=== PATIENT | male | born 1970 | race Caucasian/White ===

== ENCOUNTER 2016-10-19 08:27 | Outpatient (CLI) | payer BC ==
[2016-02-02 20:46] VITALS: BP 122/74
[2016-10-19 09:20] LABS: eGFR (African) > 60; eGFR (Non-African) > 60
== END 2016-10-19 08:30 ==
LOC: LAB 08:27
PROVIDERS: ATTEND Family Medicine
DX: E78.2 Mixed hyperlipidemia (principal)
CPT/HCPCS: 36415; 80053; 80061

== ENCOUNTER 2016-12-14 23:44 | Emergency (ER) | payer BC, OTHER ==
[2016-12-15] MEDS ORDERED: KETOROLAC TROMETHAMINE 60 MG/2 ML VIAL IM ONE (00:10)
[2016-12-15] MEDS ORDERED: NALBUPHINE HCL 10 MG/1 ML IM ONE (00:10)
[2016-12-15] MEDS ORDERED: ORPHENADRINE CITRATE 60 MG/2ML IM ONE (00:10)
--- NOTE | 2016-12-15 00:19 | ED Physician Documentation ---
General Adult - HISTORIAN Historian: patient - HPI Chief Complaint: General Adult Onset: hours Timing: worse Further Comments: yes (46 year old male presents with neck, chest wall and left shoulder pain; worse with movement, cough or palpation. Patient concerned it was his heart. Patient reports infected wound on abdmen from skin tag removal.) - ROS CONST: no problems EYES/ENT: none CVS/RESP: none GI/: none MS/SKIN/LYMPH: neck pain NEURO/PSYCH: denies: headache, fainting, dizziness - PAST HX Past History: hypertension, other (HLD) Allergies/Adverse Reactions: Allergies Allergy/AdvReac Type Severity Reaction Status Date / Time Penicillins Allergy Verified 10/16/12 08:38 Home Medications: Ambulatory Orders Medication Instructions Recorded Simvastatin [Zocor] 40 mg PO DAILY 02/02/16 - SOCIAL HX Smoking History: non-smoker - FAMILY HX Family History: No - VITAL SIGNS Vital Signs: Vital Signs Temp Pulse Resp BP Pulse Ox 122/74 02/02/16 20:27 - REVIEWED ASSESSMENTS Nursing Assessment Reviewed: Yes Vitals Reviewed: Yes Progress - Progress Progress: wound cleaned, culture obtained - dressing applied by nursing. Medicated for pain with nubain, toradol and norflex in ER. ED Results Lab/Radiology - Orders Orders: ED Orders Category Date Time Status Apply/change dressing NOW Care 12/15/16 00:10 Active WOUND CULTURE Stat Lab 12/15/16 Ordered Ketorolac Tromethamine [Toradol] Med 12/15/16 00:10 Discontinued 60 mg IM NOW ONE Nalbuphine HCl [Nubain] Med 12/15/16 00:10 Discontinued 10 mg IM NOW ONE Orphenadrine Citrate [Norflex] Med 12/15/16 00:10 Discontinued 60 mg IM NOW ONE General Adult Physical Exam - PHYSICAL EXAM GENERAL APPEARANCE: mild distress EENT: eye inspection normal, NOEMÍ NECK: normal inspection, other (left lateral pain with palpation over sternocliedomastoid muscle) RESPIRATORY: no resp distress, breath sounds normal, other (left anterior chest wall tenderness with palpation) CVS: reg rate & rhythm, heart sounds normal, equal pulses, no murmur, no gallop , PMI nml, no JVD, no friction rub, 24 ABDOMEN: soft, no organomegaly, normal bowel sounds, no abdominal bruit, no distension, other (right lateral abdomen with 1cm round wound with purulent drainage; wound culture obtained. ) SKIN: normal color, warm/dry, NR, INT, PAL, DR EXTREMITIES: non-tender, normal range of motion, no evidence of injury, no edema , other (right shoulder pain with movement) NEURO: oriented X3, CN's nml as tested, motor nml, sensation nml, mood/affect nml Discharge Clincal Impression: Cervical strain, acute Qualifiers: Encounter type: initial encounter Qualified Code(s): S16.1XXA - Strain of muscle, fascia and tendon at neck level, initial encounter Wound, open, abdominal wall, anterior Qualifiers: Encounter type: initial encounter Qualified Code(s): S31.109A - Unspecified open wound of abdominal wall, unspecified quadrant without penetration into peritoneal cavity, initial encounter Additional Instructions: Diagnosis: Infected wound on abdomen Cervical neck strain/muscle spasms Wound care: Clean the wound twice a day with hibiclens and rinse with water clean away any scabbed area Apply thin coat of antibiotic ointment after cleaning the wound. Cover with non-adherent bandage during the day, may leave open to air at night NO hydrogen peroxide Home Medications: Ambulatory Orders Simvastatin [Zocor] 40 mg PO DAILY 02/02/16 Comments: Diagnosis: Infected wound on abdomen Cervical neck strain/muscle spasms Wound care: Clean the wound twice a day with hibiclens and rinse with water clean away any scabbed area Apply thin coat of antibiotic ointment after cleaning the wound. Cover with non-adherent bandage during the day, may leave open to air at night NO hydrogen peroxide Rx: Toradol, bactrim DS, baclofen and ultram - see scanned documents. Condition: Stable Decision to Admit: NO Decision Time: 00:18
[2016-12-15 01:04] VITALS: BP 131/80
== END 2016-12-15 00:40 | disposition home or self-care (01) ==
LOC: ED 23:44
DX: S16.1XXA Strain of muscle, fascia and tendon at neck level, initial encounter (principal); S31.109A Unspecified open wound of abdominal wall, unspecified quadrant without penetration into peritoneal cavity, initial encounter; X58.XXXA Exposure to other specified factors, initial encounter; Y93.9 Activity, unspecified; Y99.9 Unspecified external cause status
CPT/HCPCS: 87070; 96372; 99283; J1885; J2300; J2360

== ENCOUNTER 2018-08-04 11:27 | Outpatient (CLI) | payer OTHER ==
[2018-07-31 17:39] VITALS: BP 133/75
== END 2018-08-04 11:30 ==
LOC: LAB 11:27
PROVIDERS: ATTEND Internal Medicine
DX: Z79.01 Long term (current) use of anticoagulants (principal)
CPT/HCPCS: 36415; 85610

== ENCOUNTER 2018-08-06 09:46 | Outpatient (CLI) | payer OTHER ==
[2018-07-31 17:39] VITALS: BP 133/75
== END 2018-08-06 09:48 ==
LOC: LAB 09:46
PROVIDERS: ATTEND Family Medicine
DX: I82.409 Acute embolism and thrombosis of unspecified deep veins of unspecified lower extremity (principal)
CPT/HCPCS: 36415; 85610

== ENCOUNTER 2018-08-11 10:25 | Outpatient (CLI) | payer OTHER ==
[2018-07-31 17:39] VITALS: BP 133/75
== END 2018-08-11 10:26 ==
LOC: LAB 10:25
PROVIDERS: ATTEND Family Medicine
DX: I82.409 Acute embolism and thrombosis of unspecified deep veins of unspecified lower extremity (principal)
CPT/HCPCS: 36415; 85610

== ENCOUNTER 2018-08-14 09:25 | Outpatient (CLI) | payer OTHER ==
[2018-07-31 17:39] VITALS: BP 133/75
== END 2018-08-14 09:26 ==
LOC: LAB 09:25
PROVIDERS: ATTEND Family Medicine
DX: I82.409 Acute embolism and thrombosis of unspecified deep veins of unspecified lower extremity (principal)
CPT/HCPCS: 36415; 85610

== ENCOUNTER 2018-08-18 09:48 | Outpatient (CLI) | payer OTHER ==
[2018-07-31 17:39] VITALS: BP 133/75
== END 2018-08-18 09:50 ==
LOC: LAB 09:48
PROVIDERS: ATTEND Family Medicine
DX: I82.409 Acute embolism and thrombosis of unspecified deep veins of unspecified lower extremity (principal)
CPT/HCPCS: 36415; 85610

== ENCOUNTER 2018-09-01 10:42 | Outpatient (CLI) | payer OTHER ==
[2018-07-31 17:39] VITALS: BP 133/75
== END 2018-09-01 10:47 | disposition home or self-care (01) ==
LOC: LAB 10:42
PROVIDERS: ATTEND Family Medicine
DX: I82.409 Acute embolism and thrombosis of unspecified deep veins of unspecified lower extremity (principal)
CPT/HCPCS: 36415; 85610

== ENCOUNTER 2018-09-08 08:36 | Outpatient (CLI) | payer OTHER ==
[2018-07-31 17:39] VITALS: BP 133/75
== END 2018-09-08 09:00 ==
LOC: LAB 08:36
PROVIDERS: ATTEND Family Medicine
DX: I82.409 Acute embolism and thrombosis of unspecified deep veins of unspecified lower extremity (principal)
CPT/HCPCS: 36415; 85610

== ENCOUNTER 2018-09-11 08:29 | Outpatient (CLI) | payer OTHER ==
[2018-07-31 17:39] VITALS: BP 133/75
== END 2018-09-11 08:30 ==
LOC: LAB 08:29
PROVIDERS: ATTEND Family Medicine
DX: I82.409 Acute embolism and thrombosis of unspecified deep veins of unspecified lower extremity (principal)
CPT/HCPCS: 36415; 85610

== ENCOUNTER 2018-09-15 07:35 | Outpatient (CLI) | payer OTHER ==
[2018-07-31 17:39] VITALS: BP 133/75
== END 2018-09-15 07:36 ==
LOC: LAB 07:35
PROVIDERS: ATTEND Family Medicine
DX: I82.409 Acute embolism and thrombosis of unspecified deep veins of unspecified lower extremity (principal)
CPT/HCPCS: 36415; 85610

== ENCOUNTER 2018-09-22 10:21 | Outpatient (CLI) | payer OTHER ==
[2018-07-31 17:39] VITALS: BP 133/75
== END 2018-09-22 10:23 ==
LOC: LAB 10:21
PROVIDERS: ATTEND Family Medicine
DX: I82.409 Acute embolism and thrombosis of unspecified deep veins of unspecified lower extremity (principal)
CPT/HCPCS: 36415; 85610

== ENCOUNTER 2018-10-06 10:01 | Outpatient (CLI) | payer OTHER ==
[2018-07-31 17:39] VITALS: BP 133/75
== END 2018-10-06 10:03 ==
LOC: LAB 10:01
PROVIDERS: ATTEND Family Medicine
DX: I82.409 Acute embolism and thrombosis of unspecified deep veins of unspecified lower extremity (principal)
CPT/HCPCS: 36415; 85610

== ENCOUNTER 2018-10-18 00:06 | Emergency (ER) | payer OTHER ==
--- NOTE | 2018-10-18 00:39 | ED Physician Documentation ---
General Adult - HISTORIAN Historian: patient - HPI Stated Complaint: abd pain Chief Complaint: General Adult Onset: hours Timing: still present Severity: moderate Further Comments: yes (Pt is a 48 yo male with abd pain and L flank pain. Pain radiates to groin. Pt has hx kidney stones. 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 Pain is similar to previous kidney stone pain.) - ROS CONST: no problems EYES/ENT: none CVS/RESP: none GI/: abdominal pain, problems urinating MS/SKIN/LYMPH: none - PAST HX Past History: hypertension, other (HLD, kidney stones) Allergies/Adverse Reactions: Allergies Allergy/AdvReac Type Severity Reaction Status Date / Time Penicillins Allergy Severe Anaphylaxis Verified 07/31/18 12:52 - SOCIAL HX Smoking History: non-smoker - FAMILY HX Family History: No - VITAL SIGNS Vital Signs: Vital Signs Temp Pulse Resp BP Pulse Ox 133/75 07/31/18 16:01 - REVIEWED ASSESSMENTS Nursing Assessment Reviewed: Yes Vitals Reviewed: Yes Progress - Progress Progress: CT of the abdomen and pelvis without contrast Clinical history: Left flank pain for 2 hr. History of kidney stones. Technique: CT the abdomen and pelvis is performed without oral or intravenous administration of contrast. Sagittal and coronal reconstructions were performed by the technologist. Findings: There are calcified right hilar nodes and calcified granuloma in the right lung base. The lung bases are otherwise clear. The liver is diffusely hypodense consistent with steatosis. There is no focal abnormality in the liver or spleen. Gallbladder is normally distended. There is no pancreatic abnormality. Right adrenal gland is unremarkable. There is a 2.2 cm hypodense nodule in the left adrenal gland consistent with lipid rich adenoma. Right kidney and collecting system are unremarkable. There is left intrarenal calcul us and left hydronephrosis. Left ureter is distended to the level of S1 are there is a 5 mm stone in the ureter. Ureter distal to this is of normal caliber. Bladder is unremarkable. There is no free fluid in the pelvis or abdomen. Appendix is visualized and is within normal limits. Gas and stool are present throughout the colon. Impression: 1. 5 mm distal left ureteral calculus with left obstructive uropathy. 2. Intrarenal calculus on the left. 3. Hepatic steatosis. 4. 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 In ER Toradol 30 mg IV Zofran 4 mg IV NS 1 L IVF Flomax 0.4 mg po Dilaudid 1 mg IV Rx Ketorolac (Toradol) 10 mg. Take one by mouth every 4 to 6 hours as needed for pain. Maximum 4 per day. Rx Zofran 4 mg ODT. Take one by mouth every 8 hours as needed for naus ea/vomiting. Rx Bactrim DS. Take one every 12 hours for 7 days. 1st dose in ER. Rx Flomax 0.4 mg. Take one by mouth once daily for 6 days or until stone passes. Rx [place] (5/325). Take one or two every 4 to 6 hours as needed for moderate to severe pain. Maximum 6 tablets per day. Follow up with primary provider to discuss adrenal adenoma and hepatic steatosis seen on CT scan. Return to ER or follow up with urologist if stone does not pass after 72 hours. General Adult Physical Exam - PHYSICAL EXAM GENERAL APPEARANCE: moderate distress EENT: pharynx normal NECK: normal inspection, supple RESPIRATORY: no resp distress, chest non-tender, breath sounds normal CVS: reg rate & rhythm, heart sounds normal, equal pulses ABDOMEN: soft, normal bowel sounds, tenderness (L abd) BACK: normal inspection, CVA tenderness (L) SKIN: warm/dry, normal color EXTREMITIES: non-tender, normal range of motion, no evidence of injury, no edema NEURO: oriented X3, motor nml, sensation nml Discharge Clincal Impression: Kidney stone on left side Referrals: Meghna Madison MD [Primary Care Provider] - Condition: Stable Disposition: 01 HOME, SELF-CARE Decision to Admit: NO Decision Time: 02:20
[2018-10-18] MEDS ORDERED: 0.9 % SODIUM CHLORIDE 1,000 ML IV ONE (00:41)
[2018-10-18] MEDS ORDERED: ONDANSETRON HCL/PF 4 MG/ 2ML VIAL IVP ONE (00:42)
[2018-10-18] MEDS ORDERED: KETOROLAC TROMETHAMINE 30 MG/1ML VIAL IVP ONE (00:42)
[2018-10-18] MEDS ORDERED: HYDROmorphone HCL/PF 1 MG/ML VIAL IVP ONE (01:53)
[2018-10-18] MEDS ORDERED: TAMSULOSIN HCL 0.4 MG CAP.ER.24H PO ONE (01:55)
[2018-10-18] MEDS ORDERED: ONDANSETRON HCL 4 MG TAB.RAPDIS PO ONE (02:00)
[2018-10-18] MEDS ORDERED: SULFAMETHOXAZOLE/TRIMETHOPRIM 800/160MG TAB PO ONE (02:02)
[2018-10-18] MEDS ORDERED: HYDROmorphone HCL/PF 2 MG/ML VIAL ONE (02:13)
[2018-10-18 02:46] VITALS: BP 127/64
--- NOTE | 2018-10-18 03:47 | Diagnostic Imaging Report ---
[place] [facility] [address] [facility] [address] [place], [place]. [address] Report Submission Date: Oct 18, 2018 1:45:14 AM [employer] Patient Study Name: ALEXIS CHRISTINA Date: Oct 18, 2018 1:12:34 AM [employer] Modality Type: CT\SR Gender: M Description: CT ABD PELVIS W/O CO : 72 Institution: [facility] Physician: E[place] CT of the abdomen and pelvis without contrast Clinical history: Left flank pain for 2 hr. History of kidney stones. Technique: CT the abdomen and pelvis is performed without oral or intravenous administration of contrast. Sagittal and coronal reconstructions were performed by the technologist. Findings: There are calcified right hilar nodes and calcified granuloma in the right lung base. The lung bases are otherwise clear. The liver is diffusely hypodense consistent with steatosis. There is no focal abnormality in the liver or spleen. Gallbladder is normally distended. There is no pancreatic abnormality. Right adrenal gland is unremarkable. There is a 2.2 cm hypodense nodule in the left adrenal gland consistent with lipid rich adenoma. Right kidney and collecting system are unremarkable. There is left intrarenal calculus and left hydronephrosis. Left ureter is distended to the level of S1 are there is a 5 mm stone in the ureter. Ureter distal to this is of normal caliber. Bladder is unremarkable. There is no free fluid in the pelvis or abdomen. Appendix is visualized and is within normal limits. Gas and stool are present throughout the colon. Impression: 1. 5 mm distal left ureteral calculus with left obstructive uropathy. 2. Intrarenal calculus on the left. 3. Hepatic steatosis. 4. 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 Electronically signed on Oct 18, 2018 1:45:14 AM [employer] by: Anthony RAIN
[2018-10-18 08:46] LABS: eGFR (Non-African) > 60
[2018-10-18 08:47] LABS: BASOPHILS % 0.6 (0.0-1.5); EOSINOPHILS % 0.9 % (0.0-6.8); MEAN CORPUSCULAR HEMOGLOBIN 28.9 pg (28.0-34.0); MONOCYTES % 5.4 % (0.0-11.0); NEUTROPHILS # 5.8 # k/uL (1.4-7.7)
[2018-10-20 07:54] LABS: APPEARANCE,URINE CLEAR (CLEAR); COLOR,URINE YELLOW (YELLOW); OCCULT BLOOD,URINE 3+ (NEGATIVE); PH URINE 6.5 (5.0 - 8.0); UROBILINOGEN URINE 0.2 Eu (0.2-1.0)
== END 2018-10-18 02:40 | disposition home or self-care (01) ==
LOC: ED 00:06
DX: N20.2 Calculus of kidney with calculus of ureter (principal); Z87.442 Personal history of urinary calculi
CPT/HCPCS: 36415; 74176; 80053; 81002; 83690; 85025; 96374; 96375; 99283; 99284; A9270; J1170; J1885; J2405; J7030; S1016

== ENCOUNTER 2018-10-20 09:20 | Outpatient (CLI) | payer OTHER | END 2018-10-20 09:35 | LOC: LAB 09:20 | PROVIDERS: ATTEND Family Medicine | DX: I82.409 Acute embolism and thrombosis of unspecified deep veins of unspecified lower extremity (principal) | CPT/HCPCS: 36415; 85610 ==

== ENCOUNTER 2018-11-10 08:41 | Outpatient (CLI) | payer OTHER ==
[2018-11-10 09:25] LABS: eGFR (Non-African) > 60
== END 2018-11-10 08:43 ==
LOC: LAB 08:41
PROVIDERS: ATTEND Family Medicine
DX: Z00.00 Encounter for general adult medical examination without abnormal findings (principal)
CPT/HCPCS: 36415; 80053; 80061

== ENCOUNTER 2019-09-01 09:48 | Emergency (ER) | payer OTHER ==
--- NOTE | 2019-09-01 10:00 | ED Physician Documentation ---
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 pain.) - ROS CONST: no problems EYES/ENT: none CVS/RESP: none GI/: none MS/SKIN/LYMPH: other (R wrist/forearm pain) - PAST HX Past History: hypertension Allergies/Adverse Reactions: Allergies Allergy/AdvReac Type Severity Reaction Status Date / Time Penicillins Allergy Severe Anaphylaxis Verified 10/18/18 02:35 - SOCIAL HX Smoking History: non-smoker - FAMILY HX Family History: No - VITAL SIGNS Vital Signs: Vital Signs Temp Pulse Resp BP Pulse Ox 127/64 10/18/18 02:40 - REVIEWED ASSESSMENTS Nursing Assessment Reviewed: Yes Vitals Reviewed: Yes Progress - Progress Progress: X-ray R wrist: History: FALL ON ICE WITH RT WRIST AND FOREARM PAIN Comparison exams: None available Findings: 3 views of the right wrist demonstrate normal cortical margins. No fracture. No dislocation. No soft tissue abnormality. Impression: No acute appearing osseous abnormality. X-ray R forearm: History: Status post fall. AP and lateral view of the right forearm are submitted. No signs of acute fracture or dislocation is seen. No bony erosions are seen. No soft tissue abnormalities identified. Impression: No bony abnormality. Toradol 60 mg IM cock-up splint d/c instructions: Wrist splint. Ibuprofen 200 mg. Take 2 or 3 tablets every 8 hours with food. (Do not take until 8 hours after ER visit because you received Toradol at the visit.) Follow up with primary provider or orthopedic doctor if symptoms unimproved. General Adult Physical Exam - PHYSICAL EXAM GENERAL APPEARANCE: moderate distress NECK: normal inspection, supple RESPIRATORY: no resp distress, chest non-tender, breath sounds normal CVS: reg rate & rhythm, heart sounds normal BACK: normal inspection, no CVA tenderness SKIN: warm/dry, normal color EXTREMITIES: other (R wrist tenderness; mild swelling proximal to wrist; good strength against resistance flexing digits and wrist.) NEURO: oriented X3, motor nml, sensation nml Discharge Clincal Impression: R wrist sprain Referrals: Meghna Madison MD [Primary Care Provider] - Condition: Stable Disposition: 01 HOME, SELF-CARE Decision to Admit: NO Decision Time: 11:00
[2019-09-01 10:04] VITALS: BP 150/90
--- NOTE | 2019-09-01 10:23 | Diagnostic Imaging Report ---
PATIENT MR#: [id number] PATIENT PATIENT NAME: ALEXIS CHRISTINA DATE OF : 1970 REFERRING PHYSICIAN: Eric German EXAM DATE: 09/01/2019 ACCESSION NUMBER: [id number] EXAM DESCRIPTION: WRIST 3 VIEWS OR MORE Examination: Plain film right wrist History: FALL ON ICE WITH RT WRIST AND FOREARM PAIN Comparison exams: None available Findings: 3 views of the right wrist demonstrate normal cortical margins. No fracture. No dislocatio n. No soft tissue abnormality. Impression: No acute appearing osseous abnormality Read by: Dr. Jabier Baez Transcribed by: Transcribed Date: Electronically signed by: Dr. Jabier Baez Date signed: 09/01/2019 10:22:54 AM
--- NOTE | 2019-09-01 10:23 | Diagnostic Imaging Report ---
PATIENT MR#: [id number] PATIENT PATIENT NAME: ALEXIS CHRISTINA DATE OF : 1970 REFERRING PHYSICIAN: Eric German EXAM DATE: 09/01/2019 ACCESSION NUMBER: [id number] EXAM DESCRIPTION: FOREARM 2 VIEWS Exam: Right forearm. History: Status post fall. AP and lateral view of the right forearm are submitted. No signs of acute fracture or dislocation is seen. No bony erosions are seen. No soft tissue abnorm alities identified. Impression: No bony abnormality. Read by: Dr. Nestor Candelario Transcribed by: Transcribed Date: Electronically signed by: Dr. Nestor Candelario Date signed: 09/01/2019 10:22:54 AM
[2019-09-01] MEDS ORDERED: KETOROLAC TROMETHAMINE 60 MG/2 ML VIAL IM ONE (10:36)
== END 2019-09-01 10:53 | disposition home or self-care (01) ==
LOC: ED 09:48
DX: S63.501A Unspecified sprain of right wrist, initial encounter (principal); W19.XXXA Unspecified fall, initial encounter
CPT/HCPCS: 73090; 73110; 96372; 99283; J1885